=== PATIENT | female | born 1960 | race Caucasian/White ===

== ENCOUNTER → 2017-06-10 | Outpatient (CLI) | payer BC ==
[~2017-06-10] MED LIST: ASPI-1403 PO; ASPI81TA94 PO; CHOL200021 PO; CHOL400C10 PO; CYCL10TA29 PO; DOCU-416 PO; ESC10 PO; ESCI10TA8 PO; ESCI5TAB10 PO; FLUT16SP19 NS; GLUC-139 PO; IBUP200C71 PO; IBUP800T37 PO; LEVO-85 PO; LOR5/325 PO; LORA10CA3 PO; MECL25TA9 PO; MULT1TAB64 PO; NITR-105 PO; ONDA4TAB97 PO; OXYC-854 PO; OXYC-865 PO; PHEN-530 PO; POTA-35 PO; POTC540 PO; TAMS0.4C25 PO; TOLT2CAP7 PO; ZOST19404 MC; ZOST19404 SQ
--- NOTE | 2017-06-10 17:06 | RADIOLOGY IMAGING REPORT ---
FACILITY: [facility] - [place] PATIENT NAME: Kinjal Hidalgo : 1960 MR: [id number] V: [id number] EXAM DATE: ORDERING PHYSICIAN: ZACHARY POSADA TECHNOLOGIST: Location: [facility] - [place] Patient: Kinjal Hidalgo : 1960 Visit/Account:[id number] Date of Sevice: 06/10/2017 CT of the abdomen and pelvis without contrast HISTORY: Kidney stones TECHNIQUE: CT abdomen and pelvis without intravenous contrast. Contiguous axial images of the abdom en and pelvis was performed from the lung bases to the symphysis pubis. One of the following dose optimization techniques was utilized in the performance of this exam: Autom ated exposure control; adjustment of the mA and/or kV according to the patient's size; or use of an i terative reconstruction technique. Specific details can be referenced in the facility's radiology C T exam operational policy. CONTRAST: None COMPARISON: CT scan 11/29/2014 FINDINGS: Visualized lung bases: Mild scarring at left lung base is noted. Hepatobiliary: Gallbladder is absent. Spleen: Negative. Adrenals: Negative. Kidneys/: There is mild fullness of left collecting system which is unchanged. No radiopaque sharlene l or ureteral stones. Bladder is unremarkable. Pancreas: Negative. GI: There is colonic diverticulosis. Appendix is normal. Remainder of the bowel is unremarkable. Vessels/spaces/nodes: Negative. Bones/soft tissues: 1 cm sclerotic focus posterior left acetabulum is noted and stable. IMPRESSION: 1. No visible radiopaque renal or ureteral stones. No significant interval change from prior exam. Report Dictated By: Jovon Fernandez MD at 06/10/2017 4:52 PM Report E-Signed By: Jovon Fernandez MD at 06/10/2017 5:03 PM WSN:[email or web address]
== END ==
LOC: CT 01:35
PROVIDERS: ATTEND Urology
DX: K57.30 Diverticulosis of large intestine without perforation or abscess without bleeding (principal); R91.8 Other nonspecific abnormal finding of lung field
CPT/HCPCS: 74176

== ENCOUNTER → 2017-11-15 | Outpatient (CLI) | payer BC ==
[~2017-11-15] MED LIST changes: +IBUP-136 PO; -IBUP200C71 PO; +META800T18 PO
--- NOTE | 2017-11-18 17:24 | RADIOLOGY IMAGING REPORT ---
FACILITY: [facility] - [place] PATIENT NAME: ANGEL TERRELL : [id number] MR: [id number] V: [id number] EXAM DATE: ORDERING PHYSICIAN: JESSICA DELEON TECHNOLOGIST: Harriett Valentin PROCEDURE:BILATERAL DIGITAL SCREENING MAMMOGRAM WITH CAD ASSISTED INTERPRETATION & 3D TOMOSYNTHESIS COMPARISON:Prior mammograms 10/15/16, 09/29/15, 09/29/14. INDICATIONS:SCREENING FINDINGS: Moderately dense fibroglandular tissue is seen throughout the breasts. In the lateral portion of the Left breast on the Left CC view in the middle 1/3 there is a focal area of increased density appears slightly more prominently compared to prior studies. This is best seen on Tomographic slice 26. Spot compression view is recommended for further evaluation. The remainder of the parenchymal pattern has remained stable throughout the breasts. DIAGNOSTIC CATEGORY 0--INCOMPLETE: NEED ADDITIONAL IMAGING EVALUATION. RECOMMENDATIONS: ADDITIONAL MAMMOGRAPHIC VIEWS REQUIRED: LEFT BREAST. IMPRESSION: BIRADS 0: Incomplete. Additional views of Left breast recommended as described. Dictated by: Omayra Suresh M.D. on 11/18/2017 at 9:33 Transcribed by: DIONNE on 11/18/2017 at 10:51 Approved by: Omayra Suresh M.D. on 11/18/2017 at 17:23 [facility]
== END ==
LOC: MAMO 03:08
PROVIDERS: ATTEND Internal Medicine
DX: Z12.31 Encounter for screening mammogram for malignant neoplasm of breast (principal); R92.8 Other abnormal and inconclusive findings on diagnostic imaging of breast
CPT/HCPCS: 77063; 77067

== ENCOUNTER → 2017-11-28 | Outpatient (CLI) | payer BC ==
--- NOTE | 2017-11-28 15:00 | RADIOLOGY IMAGING REPORT ---
FACILITY: [facility] PATIENT NAME: ANGEL TERRELL : [id number] MR: [id number] V: [id number] EXAM DATE: ORDERING PHYSICIAN: JESSICA DELEON TECHNOLOGIST: Harriett Valentin PROCEDURE:LEFT DIGITAL DIAGNOSTIC MAMMOGRAM WITH CAD ASSISTED INTERPRETATION & 3D TOMOSYNTHESIS COMPARISON:Prior mammograms 11/15/17, 10/15/16, 09/29/15, 09/29/14. INDICATIONS:FURTHER EVAL FINDINGS: The patient returns for Spot compression view in the Left CC projection and mediolateral view in the Left breast. The focal area of increased density noted in the lateral view of the Left breast on the recent Left CC view appears compressible and apparently represented a summation shadow. There is no demonstration of malignant appearing mass or calcification Left breast. DIAGNOSTIC CATEGORY 2--BENIGN FINDING. RECOMMENDATIONS: ROUTINE MAMMOGRAM AND CLINICAL EVALUATION. IMPRESSION: BIRADS 2: Benign finding. No significant abnormality of the Left breast is seen. Dictated by: Omayra Suresh M.D. on 11/28/2017 at 14:35 Transcribed by: DIONNE on 11/28/2017 at 14:55 Approved by: Omayra Suresh M.D. on 11/28/2017 at 14:59 [facility]
== END ==
LOC: MAMO 02:30
PROVIDERS: ATTEND Internal Medicine
DX: R92.8 Other abnormal and inconclusive findings on diagnostic imaging of breast (principal)
CPT/HCPCS: 77061; 77065

== ENCOUNTER → 2018-11-20 | Outpatient (CLI) | payer BC ==
--- NOTE | 2018-11-20 16:03 | RADIOLOGY IMAGING REPORT ---
FACILITY: [facility] - [place] PATIENT NAME: ANGEL TERRELL : [id number] MR: [id number] V: [id number] EXAM DATE: ORDERING PHYSICIAN: WILMER MARIO TECHNOLOGIST: Harriett Valentin PROCEDURE: BILATERAL DIGITAL SCREENING MAMMOGRAM WITH CAD ASSISTED INTERPRETATION & 3D TOMOSYNTHESIS REASON FOR STUDY: Screening. COMPARISON: 11/15/17 back to 09/29/14. VIEWS OBTAINED: 2D & 3D full field CC & MLO projections. BREAST DENSITY: The breast parenchyma consists of scattered fibroglandular tissue. MAMMOGRAM FINDINGS: There are no developing masses or muicrocalcifications. IMPRESSION: BIRADS 1: Negative. DIAGNOSTIC CATEGORY 1--NEGATIVE. RECOMMENDATIONS: ROUTINE MAMMOGRAM AND CLINICAL EVALUATION. Dictated by: Chau Perez M.D. on 11/20/2018 at 12:59 Transcribed by: DIONNE on 11/20/2018 at 14:26 Approved by: Chau Perez M.D. on 11/20/2018 at 15:59 [facility]
== END ==
LOC: MAMO 09:07
DX: Z12.31 Encounter for screening mammogram for malignant neoplasm of breast (principal)
CPT/HCPCS: 77063; 77067